=== PATIENT | female | born 1960 | race Caucasian/White ===

== ENCOUNTER 2022-07-12 08:55 | Day surgery (SDC) | payer BC ==
--- NOTE | 2022-06-27 13:20 | HP ---
DATE OF SURGERY: 06/28/2022 HISTORY OF PRESENT ILLNESS: The patient is a 62-year-old female who presents with a right shoulder and left lower extremity lesion that was biopsied by [facility]. It looks like this was basal cell. Her back lesion was about 2.5 cm and on her left lower extremity was about 1 cm. PAST MEDICAL HISTORY: Cervical cancer. Anxiety. Depression. Hyperlipidemia. Hypertension. PAST SURGICAL HISTORY: Cataract. Cholecystectomy. Hysterectomy. ALLERGIES: NKDA. MEDICATIONS: Rosuvastatin, metoprolol, benazepril, Librium, lorazepam. FAMILY HISTORY: None. SOCIAL HISTORY: Current every day smoker. REVIEW OF SYSTEMS: CONSTITUTIONAL: Denies fever or chills. CHEST: Denies shortness of breath. CVS: Denies chest pain. ABDOMEN: Denies abdominal pain. PHYSICAL EXAMINATION: GENERAL: No acute distress. CHEST: Nonlabored. No shortness of breath. CVS: Regular rate and rhythm. ABDOMEN: Soft. IMPRESSION: Basal cell carcinoma lesion of the right scapula and left lower extremity. PLAN: Excision of right scapula lesion with possible rotational flap versus split thickness skin graft and excision of left lower extremity lesion split thickness skin graft with Dr. Kirill Segovia. As dictated by Lorene Beckham NP.
--- NOTE | 2022-07-10 14:15 | HP ---
DATE OF SURGERY: 06/28/2022 HISTORY OF PRESENT ILLNESS: The patient is a 62-year-old female who presents with a basal cell carcinoma of the right scapula and left lower extremity. She desires removal. PAST MEDICAL HISTORY: Hypertension. Anxiety. Depression. Hyperlipidemia. PAST SURGICAL HISTORY: Cholecystectomy. Hysterectomy. ALLERGIES: NKDA. MEDICATIONS: Rosuvastatin, metoprolol, benazepril, Librium, lorazepam, vitamin B12. FAMILY HISTORY: None reported. SOCIAL HISTORY: Current smoker. REVIEW OF SYSTEMS: CONSTITUTIONAL: Denies fever or chills. CHEST: Denies shortness of breath. CVS: Denies chest pain. ABDOMEN: Denies abdominal pain. PHYSICAL EXAMINATION: GENERAL: No acute distress. CHEST: Nonlabored. No shortness of breath. CVS: Regular rate and rhythm. ABDOMEN: Soft. IMPRESSION: Basal cell carcinoma lesion of the right scapula and left lower extremity. PLAN: Excision of right scapula lesion with possible rotational flap versus split thickness skin graft and excision of left lower extremity lesion with split thickness skin graft with Dr. Kirill Segovia. As dictated by Lorene Beckham NP.
[~2022-07-12 08:55] MED LIST: DIPRIVAN 200 MG/20 ML IV ONE; Decadron 4 MG INJ ONE; Lactated Ringers 1,000 ML IV ONE; Quelicin Fliptop 200 MG/10 ML ONE; SUBLIMAZE 100 MCG/2 ML ONE; Sensorcaine 0.25% 10 ML ONE; Xylocaine-Mpf 2% 5 Ml Vial ONE; Zofran 4 MG/2 ML VIAL ONE
[2022-07-12] MEDS ORDERED: Lactated Ringers 1,000 ML IV ONE (09:09)
[2022-07-12] MEDS ORDERED: Lactated Ringers 1,000 ML IV SCH (09:30)
[2022-07-12 09:43] LABS: Absolute Neutrophil Ct (ANC) 7.37 x10^3/uL (1.4-6.9); BASOPHIL % 0.6 % (0.0-0.4); Basophil (Absolute #) 0.07 x10^3/uL (0-0.4); Eosinophil (Absolute #) 0.24 x10^3/uL (0-0.5); Hematocrit 46.8 % (35-47); Hemoglobin 14.7 g/dL (12.0-16.0); IMMATURE GRAN # 0.05 x10^3u/L (0.00-0.03); IMMATURE GRAN % 0.4 % (0.00-0.4); Lymphocyte (Absolute #) 3.21 x10^3/uL (1.0-4.6); Lymphocytes % 27.2 % (24.0-44.0); Mean Corpuscular Hemoglobin 29.5 pg (26-32); Mean Corpuscular Hgb Concent. 31.4 g/dL (32-36); Monocyte (Absolute #) 0.85 x10^3/uL (0.0-1.3); Monocytes % 7.2 % (0.0-12.0); Neutrophil % 62.6 % (36.0-66.0); Platelet Count 310 x10^3/uL (150-450); Red Blood Count 4.98 x10^6/uL (4.1-5.4); Red Cell Distribution Width 14.1 % (11.5-14.0); White Blood Count 11.8 x10^3/uL (4.0-10.5)
[2022-07-12 09:46] LABS: ALBUMIN 4.2 g/dL (3.5-5.0); ALKALINE PHOSPHATASE 61 U/L (38-126); ANION GAP 14.2 MEQ/L (5-15); BLOOD UREA NITROGEN 14 mg/dL (7-17); CHLORIDE 107 mmol/L (98-107); Calcium 9.2 mg/dL (8.4-10.2); Carbon Dioxide 27 mmol/L (22-30); Creatinine 1 0.65 mg/dL (0.52-1.04); EST GLOMERULAR FILTRATION RATE > 60.0 ML/MIN; Glucose 111 mg/dL (74-106); Potassium 4.2 mmol/L (3.5-5.1); SGOT/AST 24 U/L (14-36); SGPT/ALT 24 U/L (0-35); SODIUM 144 mmol/L (137-145); Total Protein 7.7 g/dL (6.3-8.2)
[2022-07-12] MEDS ORDERED: Reglan 10 MG/2 ML IV ONE (10:02)
[2022-07-12] MEDS ORDERED: Transderm Scop 1.5MG Patch TOP PRN (10:02)
[2022-07-12] MEDS ORDERED: Pepcid 20 MG VIAL IV ONE ×2 (10:02→10:04)
[2022-07-12] MEDS ORDERED: Versed 2 MG/2 ML Injection IV ONE (10:07)
[2022-07-12] MEDS ORDERED: Sodium Chloride 3 ML UD NEBULES IH ONE (10:16)
[2022-07-12] MEDS ORDERED: Decadron 4 MG INJ ONE (10:43)
[2022-07-12] MEDS ORDERED: Zofran 4 MG/2 ML VIAL ONE (10:43)
[2022-07-12] MEDS ORDERED: Xylocaine-Mpf 2% 5 Ml Vial ONE (10:43)
[2022-07-12] MEDS ORDERED: Quelicin Fliptop 200 MG/10 ML ONE (10:43)
[2022-07-12] MEDS ORDERED: DIPRIVAN 200 MG/20 ML IV ONE (10:44)
[2022-07-12] MEDS ORDERED: DEXMEDETOMIDINE 80 MCG/20ML-NS IV ONE (10:51)
[2022-07-12] MEDS ORDERED: Pre-Attached Lta Kit TP ONE (10:54)
[2022-07-12] MEDS ORDERED: SUBLIMAZE 100 MCG/2 ML ONE ×2 (10:55→13:35)
[2022-07-12] MEDS ORDERED: KEFZOL 1 GM ONE (11:47)
[2022-07-12] MEDS ORDERED: BRIDION 200MG/2ML IV ONE (12:34)
[2022-07-12] MEDS ORDERED: Zemuron 100 MG/10 ML ONE (12:34)
[2022-07-12] MEDS ORDERED: Sensorcaine 0.25% 10 ML ONE ×2 (12:40→12:45)
[2022-07-12] MEDS ORDERED: MINERAL OIL LIGHT 10 ML FOR SURGERY ONE (12:43)
[2022-07-12] MEDS ORDERED: BACIGUENT 30 GM ONE (12:57)
[2022-07-12] MEDS ORDERED: Proair Hfa MDI IH ONE (13:03)
--- NOTE | 2022-07-12 13:34 | OP ---
SURGERY DATE/TIME: 07/12/2022 1128 PREOPERATIVE DIAGNOSIS: Atypical probable malignant lesion right posterior upper back/scapula measuring 3.5 cm and protruding 2 to 3 mm and it is totally ulcerated. POSTOPERATIVE DIAGNOSIS: Atypical probable malignant lesion right posterior upper back/scapula measuring 3.5 cm and protruding 2 to 3 mm and it is totally ulcerated. PROCEDURES: 1) Wide removal of this lesion. 2) Major semicircular rotational flap. 3) Excision of a 2.5 cm circular lesion on the left lower extremity. 4) [place] and application of 6 sq/cm of split thickness skin graft to this lesion. SURGEON: Kirill Segovia M.D. ANESTHESIA: General. COMPLICATIONS: None. CONDITION: Stable. INDICATION: The patient has these two lesions. DESCRIPTION OF PROCEDURE: The one on the upper back was addressed first. She was positioned for such. Left side down, right side up. Routine prep and drape. A major semicircular rotational flap was drawn out to include a triangle of tissue and removing the circular portion with over 1 cm margin this was taken out. The specimen removed. Rotational flap was completed. It was loosened on all edges and then it was placed together with sutures #2-0, 3-0 and 4-0 Prolene. It looked excellent. No tension on the tip. The tip was then worked with 4-0 Prolene. The patient was turned back on the back. Circular excision of the lesion on the lower extremity including skin and subcutaneous tissue. Split thickness skin graft 6 sq/cm harvested and applied. Sterile dressing applied. The patient tolerated the procedure satisfactorily. Findings discussed with in the waiting room.
[2022-07-12] MEDS ORDERED: NORCO 5/325 MG PO PRN (14:21)
[2022-07-12 14:46] VITALS: O2SAT 93
[2022-07-12 14:58] VITALS: BP 136/81; PULSE 85
== END 2022-07-12 15:07 | disposition home or self-care (01) ==
LOC: SDC 08:55
PROVIDERS: ATTEND Surgery
DX: C44.519 Basal cell carcinoma of skin of other part of trunk (principal); C44.719 Basal cell carcinoma of skin of left lower limb, including hip
CPT/HCPCS: 36415; 80053; 85025; 93005; J0330; J0690; J1100; J2250; J2405; J2704; J3010; J7614; A9270-GY